=== PATIENT | female | born 1995 | race Caucasian/White ===

== ENCOUNTER 2016-06-09 13:50 | Inpatient (IN) | payer OTHER ==
[~2016-06-09] VITALS: Ht 157.5 cm; Wt 68.2 kg
[~2016-06-09 13:50] MED LIST: BACTDS PO; IBUP-1542 PO; RIFA300C53 PO
[2016-06-09] MEDS ORDERED: METHYLERGONOVINE 0.2 MG INJ IM PRN (14:00)
[2016-06-09] MEDS ORDERED: CARBOPROST 250 MCG INJ IM PRN (14:00)
[2016-06-09] MEDS ORDERED: CLINDAMYCIN 900 MG/D5W (PMX) 50 ML IVPB SCH (14:00)
[2016-06-09] MEDS ORDERED: OXYTOCIN 30 UNITS/LR 500 ML IV PRN (14:00)
[2016-06-09] MEDS ORDERED: MISOPROSTOL 200 MCG TAB PR PRN ×2 (14:00→15:30)
[2016-06-09 14:02] VITALS: Ht 157.5 cm; Wt 68.2 kg
[2016-06-09] MEDS ORDERED: PREN1TAB17 PO (14:08)
[2016-06-09 14:26] LABS: BASOPHILS % 0.4 % (0.0-2.0); EOSINOPHILS % 0.4 % (0.0-7.0); HEMATOCRIT 35.1 % (37.0-47.0); LYMPHOCYTES # 1.7 10^3/ul (0.8-2.9); MEAN CORPUSCULAR HEMOGLOBIN 30.9 pg (29.0-33.0); MEAN CORPUSCULAR HGB CONC 34.2 g/dl (32.0-37.0); MEAN CORPUSCULAR VOLUME 90.5 fl (72.0-104.0); MONOCYTE # 0.7 10^3/ul (0.3-0.9); MONOCYTES % 6.8 % (0.0-13.0); NEUTROPHIL # 7.5 10^3/ul (1.6-7.5); NEUTROPHILS % 75.4 % (30.0-74.0); PLATELET COUNT 234 10^3/UL (140-440); RED BLOOD COUNT 3.88 10^6/ul (4.20-5.40); RED CELL DISTRIBUTION WIDTH 13.1 % (11.5-14.5)
[2016-06-09 14:28] LABS: CONDITION 1
[2016-06-09] MEDS ORDERED: LACTATED RINGER'S 1,000 ML IV ONE (15:00)
[2016-06-09] MEDS ORDERED: morphine SULFATE/PF (10 MG/10 ML) INJ ONE (15:06)
[2016-06-09] MEDS: LACTATED RINGER'S 1,000 ML IV SCH ×2 (15:14→22:06)
[2016-06-09] MEDS ORDERED: PHENYLephrine (100 MCG/ML) 5ML SYG ONE (15:16)
--- NOTE | 2016-06-09 15:17 | HP ---
Date/Time of Note Date/Time of Note DATE: 06/09/16 TIME: 15:15 OB - History Hx of Present Free Text/Dictation G#P2 with h/o c/s x 2 and IUP at 39 weeks c/o painful UCs and demanding repeat c /s at this time. Care: Good Care Ultrasounds: Normal mid trimester US Obstetrical Complications: None Past Family/Social History * Past Medical, Surgical, Family and Obstetric Histories reviewed from chart. OB Admission Exam Physical Exam HEENT: WNL Heart: Rhythm Normal Lungs: Clear, Equal Abdomen: WNL Extremities: Normal Reflexes: Normal Last 72 hours Lab Results CBC & BMP 06/09/16 14:20 OB Assessment/Plan Other Assessment: G#P2 with h/o c/s x 2 and IUP at 39 weeks c/o painful UCs and demanding repeat c /s at this time. Other plan: repeat c/s R/B/I/A d/w pt. informed consent obtained MARSHALL PACHECO MD Jun 09, 2016 15:17
[2016-06-09 15:21] LABS: INR 0.91; PROTIME 12.3 Sec (12.2-14.2)
[2016-06-09] MEDS ORDERED: EPHEDrine SULFATE 50 MG/5 ML SYG ONE (15:21)
[2016-06-09] MEDS ORDERED: ONDANSETRON 4 MG INJ ONE (15:21)
[2016-06-09] MEDS ORDERED: OXYTOCIN 30 UNITS/LR 500 ML IV ONE (15:21)
[2016-06-09] MEDS ORDERED: LANOLIN 7 GM TUBE TOP PRN (15:30)
[2016-06-09] MEDS ORDERED: NA PHOSPHATE/BIPHOS 133 ML ENEMA PR PRN (15:30)
[2016-06-09] MEDS ORDERED: FENTAnyl 50 MCG/ML VIAL ONE ×2 (15:31→15:35)
--- NOTE | 2016-06-09 15:45 | PREOPHP ---
DATE OF ADMISSION: 06/09/2016 HISTORY OF PRESENT ILLNESS: The patient is a 21-year-old 3, para 2, with at 39 wee ia, with history of previous delivery x2 in the past who desires to have repeat de monica. She reported to my office today complaining of painful regular contractions and she came to the hospital complaining of painful uterine contractions demanding repeat delivery at this time. Risks, benefits, indications, and alternatives of procedure including but not limited to ris k of infection, bleeding, damage to other organs, bowel, bladder, hernia formation, scar formation, possibility of blood transfusions were all discussed with the patient. She was allowed to ask quest ions. All her questions were answered, and informed consent has been obtained. PAST MEDICAL HISTORY: None. PAST SURGICAL HISTORY: delivery x2. ALLERGIES: NO KNOWN DRUG ALLERGIES. MEDICATIONS: 1. vitamins. 2. Iron. REVIEW OF SYSTEMS: Significant as above. PHYSICAL EXAMINATION: VITAL SIGNS: Stable. She is afebrile, no acute distress. HEENT: No thyromegaly. HEART: Regular rate and rhythm. LUNGS: Clear to auscultation bilaterally. ABDOMEN: Soft, gravid. EXTREMITIES: No edema. ASSESSMENT: 1. Term . 2. History of previous delivery. 3. Labor. PLAN: Repeat delivery. Informed consent has been obtained. Dictated By: MARSHALL MORALEZ/JUDY Conf#: [id number] DID#: [id number]
[2016-06-09 15:59] LABS: CANNABINOIDS Negative (NEGATIVE)
[2016-06-09 16:00] LABS: BARBITURATES Negative (NEGATIVE); BENZODIAZEPINES Negative (NEGATIVE)
[2016-06-09] MEDS ORDERED: DIPHENHYDRAMINE 50 MG INJ IV PRN ×2 (16:00)
[2016-06-09] MEDS ORDERED: FENTAnyl 50 MCG/ML VIAL IV PRN ×2 (16:00)
[2016-06-09] MEDS ORDERED: MEPERIDINE 25 MG INJ IV PRN (16:00)
[2016-06-09] MEDS ORDERED: HYDROmorphONE 1 MG/ML SYG IV PRN ×2 (16:00)
[2016-06-09] MEDS ORDERED: ONDANSETRON 4 MG INJ IV PRN ×2 (16:00)
[2016-06-09] MEDS ORDERED: METOCLOPRAMIDE 10 MG INJ IV PRN (16:00)
[2016-06-09] MEDS ORDERED: HYDROmorphONE (0.2 MG/ML) 10ML SYG IV PRN ×3 (16:00)
[2016-06-09] MEDS ORDERED: KETOROLAC 30 MG INJ IV ONE (16:00)
[2016-06-09] MEDS ORDERED: NALOXONE (0.4 MG/ML) INJ IV PRN (16:00)
[2016-06-09] MEDS ORDERED: PROCHLORPERAZINE 10 MG INJ IV PRN (16:00)
[2016-06-09 16:05] LABS: COCAINE Negative (NEGATIVE); OPIATES Negative (NEGATIVE)
[2016-06-09] MEDS: OXYTOCIN 30 UNITS/LR 500 ML IV SCH ×2 (16:21→18:17)
--- NOTE | 2016-06-09 16:38 | OPR ---
DATE OF OPERATION: 06/09/2016 PREOPERATIVE DIAGNOSES: Term , history of previous delivery x2, early labor. POSTOPERATIVE DIAGNOSES: Term , history of previous delivery x2, early labor. PLAN: Repeat delivery. SURGEON: Marshall Palacios MD CASINO ACCOUNTANT: Naye Kent MD ESTIMATED BLOOD LOSS: 700. COMPLICATIONS: None. PROCEDURE IN DETAIL: Risks, benefits, indications, alternatives of procedure including, but not prado ited to risk of infection, bleeding, damage to other organs, bowel, bladder, hernia formation, scar formation, possibility of transfusions were all discussed with the patient. She was allowed to ask questions. All her questions were answered. Informed consent was obtained, she was taken to the op erating room and spinal anesthesia was given. She was prepped and draped in the usual sterile fashi on. Surgical time out was done. Anesthesia was tested to be adequate. With the permission of the anesthesiologist, a Pfannenstiel skin incision was developed on the previous scar and was removed. Incision was taken down in layers. The fascia was cut, undermined, from the underlying mu scle using sharp and blunt dissection. All the bleeders were cauterized. Peritoneum was entered bl untly. A low transverse incision was developed over the uterus and a viable infant was delivered in the vertex presentation. Amniotic fluid was clear and adequate. The cord was clamped and cut, kam ded to awaiting team. Placenta was then delivered. Uterus was exteriorized, wrapped in a moist lap . Inside of the uterus was cleaned using dry lap. All membranes were removed. Uterine incisi on was closed using #1 Monocryl in 2 layers. Uterus was inserted back inside abdominal cavity and i rrigation was done. Gutters were cleaned. Uterine incision was evaluated carefully. There was no further bleeding. Rectus muscle, rectus fascia, and peritoneum were evaluated. All the bleeders ca uterized Peritoneum was closed using 2-0 Monocryl. Rectus muscles approximated using 2-0 Mon ocryl. Rectus fascia and subcutaneous tissue was cleaned, irrigated, all bleeders cauterized and th e fascia was closed using #1 Vicryl and skin closed using 4-0 Monocryl. All counts correct. Dictated By: MARSHALL MORALEZ/JUDY Conf#: [id number] DID#: [id number]
[2016-06-09 18:45] VITALS: BP 106/77; PULSE 87; RESP 18
[2016-06-09 20:00] VITALS: BP 107/65; PULSE 78; RESP 18
[2016-06-09] MEDS: SENNA/DOCUSATE NA (8.6MG/50MG) TAB PO SCH (21:39)
[2016-06-09 23:50] VITALS: BP 109/68; PULSE 100; RESP 18
[2016-06-10 04:00] VITALS: BP 102/55; PULSE 79; RESP 17
[2016-06-10] MEDS: KETOROLAC 30 MG INJ IV PRN ×2 (05:07→12:03)
[2016-06-10] MEDS: LACTATED RINGER'S 1,000 ML IV SCH ×2 (05:12→13:10)
[2016-06-10 07:06] LABS: BASOPHILS % 0.1 % (0.0-2.0); EOSINOPHILS # 0.1 10^3/ul (0.0-0.5); EOSINOPHILS % 0.7 % (0.0-7.0); HEMATOCRIT 25.4 % (37.0-47.0); HEMOGLOBIN 8.8 g/dl (12.0-16.0); LYMPHOCYTES # 1.4 10^3/ul (0.8-2.9); LYMPHOCYTES % 13.2 % (18.0-55.0); MEAN CORPUSCULAR HEMOGLOBIN 31.9 pg (29.0-33.0); MEAN CORPUSCULAR HGB CONC 34.6 g/dl (32.0-37.0); MEAN CORPUSCULAR VOLUME 92.3 fl (72.0-104.0); MEAN PLATELET VOLUME 9.3 fl (7.4-10.4); MONOCYTE # 0.7 10^3/ul (0.3-0.9); MONOCYTES % 6.6 % (0.0-13.0); NEUTROPHIL # 8.2 10^3/ul (1.6-7.5); NEUTROPHILS % 79.4 % (30.0-74.0); PLATELET COUNT 171 10^3/UL (140-440); RED BLOOD COUNT 2.75 10^6/ul (4.20-5.40); RED CELL DISTRIBUTION WIDTH 12.8 % (11.5-14.5); UNCORRECTED WBC 10.4 10^3/ul (4.8-10.8); WHITE BLOOD COUNT 10.4 10^3/ul (4.8-10.8)
[2016-06-10 07:08] LABS: CONDITION 1
[2016-06-10 08:15] VITALS: BP 104/63; PULSE 73; RESP 18
[2016-06-10] MEDS: SENNA/DOCUSATE NA (8.6MG/50MG) TAB PO SCH ×2 (08:46→21:05)
[2016-06-10 12:03] VITALS: BP 94/52; PULSE 73; RESP 18
--- NOTE | 2016-06-10 13:08 | PN ---
Date/Time of Note Date/Time of Note DATE: 06/10/16 TIME: 13:07 OB Subjective Subjective Subjective Post C Section day 1 Patient is doing well, Ambulatory She is afebrile Abdomen is soft , Fundus is firm Moderate amount of lochia Breasts are soft, Nipples are intact No calf tenderness. Incision Laboratory Tests Test 06/09/16 14:20 06/09/16 14:58 06/09/16 15:10 06/10/16 06:10 Basophils # 0.010^3/ul 0.010^3/ul Basophils % 0.4% 0.1% Eosinophils # 0.010^3/ul 0.110^3/ul Eosinophils % 0.4% 0.7% Hematocrit 35.1% 25.4% Hemoglobin 12.0g/dl 8.8g/dl Lymphocytes # 1.710^3/ul 1.410^3/ul Lymphocytes % 17.0% 13.2% Mean Corpuscular Hemoglobin 30.9pg 31.9pg Mean Corpuscular Hemoglobin Concent 34.2g/dl 34.6g/dl Mean Corpuscular Volume 90.5fl 92.3fl Mean Platelet Volume 9.0fl 9.3fl Monocytes # 0.710^3/ul 0.710^3/ul Monocytes % 6.8% 6.6% Neutrophils # 7.510^3/ul 8.210^3/ul Neutrophils % 75.4% 79.4% Nucleated Red Blood Cells # 0.010^3/ul 0.010^3/ul Nucleated Red Blood Cells % 0.0/100WBC 0.0/100WBC Platelet Count 44328^3/UL 62012^3/UL Rapid Plasma Reagin NONREACTIVE Red Blood Count 3.8810^6/ul 2.7510^6/ul Red Cell Distribution Width 13.1% 12.8% White Blood Count 10.010^3/ul 10.410^3/ul Activated Partial Thromboplast Time 24.0Sec Hepatitis B Surface Antigen NEGATIVE INR International Normalized Ratio 0.91 Prothrombin Time 12.3Sec Prothrombin Time Ratio 1.0 Urine Amphetamines Screen Negative Urine Barbiturates Negative Urine Benzodiazepines Screen Negative Urine Cannabinoids Negative Urine Cocaine Screen Negative Urine Opiates Screen Negative Current Medications Medications (Trade) Dose Ordered Sig/Sapna Route PRN Reason Start Time Stop Time Status Last Admin Dose Admin Oxytocin/Lactated Ringer's 500 ml @ 125 mls/hr ONCE IV 06/09/16 14:00 06/09/16 18:17 Oxytocin/Lactated Ringer's 500 ml @ 0 mls/hr ONCE PRN IV For Hemorrhage Management 06/09/16 14:00 Methylergonovine Maleate (Methergine) 0.2 mg ONCE PRN IM VAGINAL BLEEDING 06/09/16 14:00 06/09/16 17:29 Carboprost Tromethamine (Hemabate) 250 mcg ONCE PRN IM VAGINAL BLEEDING 06/09/16 14:00 Misoprostol 1000 mcg 1,000 mcg ONCE PRN RI VAGINAL BLEEDING 06/09/16 14:00 Clindamycin HCl/ Dextrose 50 ml @ 50 mls/hr ONCE IVPB 06/09/16 14:00 06/09/16 14:59 DC 06/09/16 14:43 Lactated Ringer's 1,000 ml @ 1,000 mls/hr Q1H ONCE IV 06/09/16 15:00 06/09/16 15:59 DC 06/09/16 14:43 Lactated Ringer's (Lr) 1,000 ml @ 125 mls/hr Q8H IV 06/09/16 15:14 06/10/16 05:12 Oxycodone/ Acetaminophen (Percocet (5/ 325)) 1 tab Q4H PRN PO PAIN LEVEL 4-6 06/09/16 15:30 Oxycodone/ Acetaminophen (Percocet (5/ 325)) 2 tab Q4H PRN PO PAIN LEVEL 7-10 06/09/16 15:30 Ibuprofen (Motrin) 600 mg Q6 PO 06/10/16 18:00 Simethicone (Mylicon) 160 mg Q8H PRN PO DISTENSION/GAS/BLOATING 06/09/16 15:30 06/10/16 08:45 Senna/Docusate Sodium (Senokot-S) 1 tab BID PO 06/09/16 21:00 06/09/16 21:39 Sodium Biphosphate/ Sodium Phosphate (Fleet Enema) 133 ml DAILY PRN RI CONSTIPATION 06/09/16 15:30 Lanolin (Esz-G-Xshkjg) 1 applic BEDSIDE MEDICATION PRN TOP BEDSIDE FOR MARCIAL TO NIPPLES 06/09/16 15:30 06/09/16 22:02 Diphtheria/ Tetanus/Acell Pertussis (Adacel) 0.5 ml ONCE ONCE IM* 06/12/16 09:00 06/12/16 09:01 Measles/Mumps/ Rubella Vaccine Live (Mmr Ii Vaccine) 0.5 ml ONCE ONCE SC* 06/12/16 09:00 06/12/16 09:01 Misoprostol (Cytotec) 1,000 mcg ONCE PRN RI VAGINAL BLEEDING 06/09/16 15:30 Naloxone HCl (Narcan) 0.1 mg Q2M PRN IV FOR RESP RATE 8 OR LESS 06/09/16 16:00 06/10/16 15:59 Ketorolac Tromethamine (Toradol) 30 mg Q6H PRN IV PAIN 06/09/16 16:00 06/10/16 15:59 06/10/16 12:03 Hydromorphone HCl (Dilaudid) 0.2 mg Q3H PRN IV PAIN LEVEL 1-5 06/09/16 16:00 06/10/16 15:59 Hydromorphone HCl (Dilaudid) 0.4 mg Q3H PRN IV PAIN LEVEL 6-10 06/09/16 16:00 06/10/16 15:59 06/10/16 10:12 Diphenhydramine HCl (Benadryl) 25 mg Q6H PRN IV ITCHING 06/09/16 16:00 06/10/16 15:59 Ondansetron HCl (Zofran Inj) 4 mg Q6H PRN IV NAUSEA AND/OR VOMITING 06/09/16 16:00 06/10/16 15:59 Prochlorperazine (Compazine Inj) 10 mg ONCE PRN IV NAUSEA AND/OR VOMITING 06/09/16 16:00 06/10/16 15:59 Hydromorphone HCl (Dilaudid (Rec)) 0.2 mg PACU ORDER PRN IV MILD PAIN LEVEL 1-3 06/09/16 16:00 06/09/16 18:25 DC Hydromorphone HCl (Dilaudid (Rec)) 0.4 mg PACU ORDER PRN IV MODERATE PAIN LEVEL 4-6 06/09/16 16:00 06/09/16 18:25 DC Hydromorphone HCl (Dilaudid (Rec)) 0.6 mg PACU ORDER PRN IV SEVERE PAIN LEVEL 7-10 06/09/16 16:00 06/09/16 18:25 DC Fentanyl (Sublimaze) 25 mcg PACU ORDER PRN IV MILD PAIN LEVEL 1-3 06/09/16 16:00 06/09/16 18:25 DC Fentanyl (Sublimaze) 50 mcg PACU ODER PRN IV MODERATE PAIN LEVEL 4-6 06/09/16 16:00 06/09/16 18:25 DC Ketorolac Tromethamine (Toradol) 30 mg PACU ORDER ONCE IV 06/09/16 16:00 06/09/16 18:25 DC 06/09/16 17:14 Ondansetron HCl (Zofran Inj) 4 mg PACU ORDER PRN IV NAUSEA AND/OR VOMITING 06/09/16 16:00 06/09/16 18:22 DC Metoclopramide HCl (Reglan) 10 mg PACU ORDER PRN IV NAUSEA AND/OR VOMITING 06/09/16 16:00 06/09/16 18:25 DC Meperidine HCl (Demerol) 25 mg PACU ORDER PRN IV POST-OP RIGORS 06/09/16 16:00 06/09/16 18:25 DC Diphenhydramine HCl (Benadryl) 25 mg PACU ORDER PRN IV PRURITUS 06/09/16 16:00 06/09/16 18:25 DC Morphine Sulfate (Duramorph) 10 mg STK-MED ONCE .ROUTE 06/09/16 15:06 06/09/16 18:47 DC Phenylephrine HCl (Jamil-Synephrine Inj Syg) 500 mcg STK-MED ONCE .ROUTE 06/09/16 15:16 06/09/16 18:47 DC Ephedrine Sulfate 50 mg 50 mg STK-MED ONCE .ROUTE 06/09/16 15:21 06/09/16 18:47 DC Oxytocin/Lactated Ringer's 500 ml @ ud STK-MED ONCE IV 06/09/16 15:21 06/09/16 18:47 DC Ondansetron HCl (Zofran Inj) 4 mg STK-MED ONCE .ROUTE 06/09/16 15:21 06/09/16 18:48 DC Fentanyl (Sublimaze) 100 mcg STK-MED ONCE .ROUTE 06/09/16 15:31 06/09/16 18:48 DC Fentanyl (Sublimaze) 100 mcg STK-MED ONCE .ROUTE 06/09/16 15:35 06/09/16 18:48 DC Influenza Virus Vaccine (Fluzone) 0.5 ml ONCE ONCE IM* 06/10/16 19:30 06/10/16 19:31 is healing well. Breast feeding the new born. ANKIT NAJERA MD Jun 10, 2016 13:08
[2016-06-10 15:49] VITALS: BP 110/56; PULSE 76; RESP 16
[2016-06-10] MEDS: OXYCODONE/ACETAMINOPHEN (5/325) TAB PO PRN ×2 (15:49→22:00)
[2016-06-10] MEDS: IBUPROFEN 600 MG TAB PO SCH ×2 (18:08→23:53)
[2016-06-10] MEDS ORDERED: INFLUENZA VIRUS VACCINE 0.5 ML SYG IM* ONE (19:30)
[2016-06-10 19:45] VITALS: BP 114/53; PULSE 81; RESP 18
[2016-06-11 04:15] VITALS: BP 106/68; PULSE 86; RESP 18
[2016-06-11] MEDS: OXYCODONE/ACETAMINOPHEN (5/325) TAB PO PRN ×5 (04:42→21:42)
[2016-06-11] MEDS: IBUPROFEN 600 MG TAB PO SCH ×3 (05:56→17:44)
[2016-06-11 08:00] VITALS: BP 108/57; PULSE 71; RESP 18
[2016-06-11] MEDS: SENNA/DOCUSATE NA (8.6MG/50MG) TAB PO SCH ×2 (08:56→21:42)
--- NOTE | 2016-06-11 10:05 | PN ---
Date/Time of Note Date/Time of Note DATE: 06/11/16 TIME: 10:00 OB Subjective Subjective Subjective Denies any complaint. Frankel well controlled with PO pain meds. Breast feeding. Passed flatus. Denies any nausea or vomiting. Ambulated. Denies any dizziness, lightheadadness, SOB or chest pain. OB Objective Objective Objective GA: A&O, NAD Abdomen: slgit distension, but good bowel sounds audible. Extremities: No calf tenderness, no click, no edema Lungs; CTA Bilaterally CV: RRR Hematology - 72 Hrs Test 06/09/16 14:20 06/10/16 06:10 Basophils # 0.010^3/ul (0.0-0.1) 0.010^3/ul (0.0-0.1) Basophils % 0.4% (0.0-2.0) 0.1% (0.0-2.0) Eosinophils # 0.010^3/ul (0.0-0.5) 0.110^3/ul (0.0-0.5) Eosinophils % 0.4% (0.0-7.0) 0.7% (0.0-7.0) Hematocrit 35.1% (37.0-47.0) L 25.4% (37.0-47.0) #L Hemoglobin 12.0g/dl (12.0-16.0) 8.8g/dl (12.0-16.0) #L Lymphocytes # 1.710^3/ul (0.8-2.9) 1.410^3/ul (0.8-2.9) Lymphocytes % 17.0% (18.0-55.0) L 13.2% (18.0-55.0) L Mean Corpuscular Hemoglobin 30.9pg (29.0-33.0) 31.9pg (29.0-33.0) Mean Corpuscular Hemoglobin Concent 34.2g/dl (32.0-37.0) 34.6g/dl (32.0-37.0) Mean Corpuscular Volume 90.5fl (72.0-104.0) 92.3fl (72.0-104.0) Mean Platelet Volume 9.0fl (7.4-10.4) 9.3fl (7.4-10.4) Monocytes # 0.710^3/ul (0.3-0.9) 0.710^3/ul (0.3-0.9) Monocytes % 6.8% (0.0-13.0) 6.6% (0.0-13.0) Neutrophils # 7.510^3/ul (1.6-7.5) 8.210^3/ul (1.6-7.5) H Neutrophils % 75.4% (30.0-74.0) H 79.4% (30.0-74.0) H Nucleated Red Blood Cells # 0.010^3/ul (0.0-0.0) 0.010^3/ul (0.0-0.0) Nucleated Red Blood Cells % 0.0/100WBC (0.0-0.0) 0.0/100WBC (0.0-0.0) Platelet Count 10345^3/UL (140-440) 53791^3/UL (140-440) # Red Blood Count 3.8810^6/ul (4.20-5.40) L 2.7510^6/ul (4.20-5.40) #L Red Cell Distribution Width 13.1% (11.5-14.5) 12.8% (11.5-14.5) White Blood Count 10.010^3/ul (4.8-10.8) 10.410^3/ul (4.8-10.8) OB Assessment/Plan Other Assessment: POD #2 S/p Repeat section Doing well anemia. post op, asymptomatic Plan: Expectant Management Other plan: Routine post op care Iron BID and stool softener Anticipate DC home tomorrow JACLYN KEEN MD Jun 11, 2016 10:04
[2016-06-11 15:33] VITALS: BP 110/78; PULSE 97; RESP 18
[2016-06-11 20:10] VITALS: BP 105/59; PULSE 58; RESP 18
[2016-06-12 03:45] VITALS: BP 110/59; RESP 18
[2016-06-12] MEDS: OXYCODONE/ACETAMINOPHEN (5/325) TAB PO PRN ×2 (03:47→08:57)
[2016-06-12] MEDS: IBUPROFEN 600 MG TAB PO SCH ×3 (05:59→12:58)
[2016-06-12 07:40] VITALS: BP 109/53; PULSE 74; RESP 20
--- NOTE | 2016-06-12 08:19 | DS ---
Date/Time of Note Date/Time of Note DATE: 06/12/16 TIME: 08:18 Obstetrical Discharge Record Final Diagnosis Final Diagnosis: Term delivered Vaginal Delivery Obstetrical Delivery: Bilateral Tubal Ligation Section Section: Repeat Complications Augmentation: No Induction: No Rupture of Membranes: No Condition on Discharge Physical Assessment Voiding: Yes Bowel Movement: Yes Breast: Soft, non-tender, Filling Fundus: Firm Abdomen and Incision: soft, appropriate tenderness, incision is clean and intact and no sign of infection Calf Tenderness: No Patient Condition: Good MARSHALL PACHECO MD Jun 12, 2016 08:19
[2016-06-12] MEDS: SENNA/DOCUSATE NA (8.6MG/50MG) TAB PO SCH (08:57)
[2016-06-12] MEDS ORDERED: MEASLES,MUMPS,RUBELLA VACCINE INJ SC* ONE (09:00)
[2016-06-12] MEDS ORDERED: DIPHTH/TET/ACEL PERTUSS (ADULT) 0.5 ML VIAL IM* ONE (09:00)
[2016-06-12 10:20] LABS: BASOPHILS % 0.3 % (0.0-2.0); EOSINOPHILS # 0.1 10^3/ul (0.0-0.5); EOSINOPHILS % 1.7 % (0.0-7.0); HEMATOCRIT 23.3 % (37.0-47.0); HEMOGLOBIN 7.9 g/dl (12.0-16.0); LYMPHOCYTES # 1.9 10^3/ul (0.8-2.9); LYMPHOCYTES % 23.2 % (18.0-55.0); MEAN CORPUSCULAR HGB CONC 33.8 g/dl (32.0-37.0); MEAN CORPUSCULAR VOLUME 91.7 fl (72.0-104.0); MEAN PLATELET VOLUME 9.4 fl (7.4-10.4); MONOCYTE # 0.6 10^3/ul (0.3-0.9); MONOCYTES % 7.9 % (0.0-13.0); NEUTROPHIL # 5.4 10^3/ul (1.6-7.5); NEUTROPHILS % 66.9 % (30.0-74.0); PLATELET COUNT 203 10^3/UL (140-440); RED BLOOD COUNT 2.54 10^6/ul (4.20-5.40); RED CELL DISTRIBUTION WIDTH 13.5 % (11.5-14.5)
[2016-06-12 10:22] LABS: CONDITION 1; LH ANALYZER COMMENTS 1
== END 2016-06-12 15:11 | disposition home or self-care (01) | DRG 766 ==
LOC: L-D 13:50 → PP1 18:42
PROVIDERS: ADMIT Specialist; ATTEND Specialist
PROC: 10D00Z1 Extraction of Products of Conception, Low, Open Approach (ICD-10-PCS; principal; 2016-06-09 15:30)
DX: O34.211 Maternal care for low transverse scar from previous cesarean delivery (principal); O90.81 Anemia of the puerperium; D64.9 Anemia, unspecified; Z37.0 Single live birth; Z3A.39 39 weeks gestation of pregnancy
CPT/HCPCS: 80307; 85025; 85610; 85730; 86592; 86850; 86900; 86901; 87340; 90686; 90715; 99464; J1170; J1885; J2210; J2274; J2370; J2405; J2590; J3010; J7120